=== PATIENT | male | born 1965 | race Caucasian/White ===

== ENCOUNTER 2016-11-18 09:46 | Emergency (ER) | payer OTHER ==
[2016-11-18 10:00] VITALS: BP 116/72
--- NOTE | 2016-11-18 10:26 | UC ---
Skin Complaint HPI - HPI Summary HPI Summary: hives all over x 4 days + macular rash , itchy, no new food or detergent , started on zyban 3 weeks ago - History of Current Complaint Chief Complaint: UCRash Time Seen by Provider: 11/18/16 10:17 Stated Complaint: SKIN COMPLAINT Hx Obtained From: Patient Onset/Duration: Gradual Onset, Lasting Days - 4, Still Present Timing: Constant Onset Severity: Moderate Current Severity: Moderate Location: Diffuse Character: Pruritus, Hives, Redness Aggravating: Nothing Alleviating: Nothing Associated Signs & Symptoms: Positive: Rash. Negative: Vomiting, Numbness, Thirst, Diaphoresis, Shivering, Fever, Chills, Tenderness, Red Streaks, Joint Swelling - Allergy/Home Medications Allergies/Adverse Reactions: Allergies Allergy/AdvReac Type Severity Reaction Status Date / Time No Known Allergies Allergy Verified 11/18/16 09:54 Home Medications: Home Medications Bupropion HCl (Smoking [place] [Zyban] 150 mg PO BID 11/18/16 [History Confirmed 11/18/16] Esomeprazole(NF) [NexIUM(NF)] 40 mg PO DAILY 11/18/16 [History Confirmed ] Hydrocortisone 1% CREAM* [Hytone Cream 1%*] 1 applic TOPICAL QID PRN 11/18/16 [ History Confirmed 11/18/16] Lisinopril TAB* [Prinivil TAB*] 10 mg PO DAILY 11/18/16 [History Confirmed 11/18] Witch Pinky (Hamamelis Virgini [Witch Pinky] 1 applic TOPICAL SEE INSTRUCTIONS PRN 11/18/16 [History Confirmed 11/18/16] diPHENhydraMINE PO* [Benadryl PO 25 MG TAB*] 50 mg PO Q6H PRN 11/18/16 [History Confirmed 11/18/16] Review of Systems Constitutional: Negative Skin: Rash Eyes: Negative ENT: Negative Respiratory: Negative Cardiovascular: Negative Gastrointestinal: Negative Genitourinary: Negative All Other Systems Reviewed And Are Negative: Yes PMH/Surg Hx/FS Hx/Imm Hx GI/ History: Gastroesophageal Reflux - Surgical History Surgical History: None - Family History Known Family History: Negative: Diabetes - Social History Alcohol Use: Occasionally Substance Use Type: None Smoking Status (MU): Heavy Every Day Tobacco Smoker Type: Cigarettes Amount Used/How Often: 1 1/2 PPD Length of Time of Smoking/Using Tobacco: Since Age 19 Have You Smoked in the Last Year: Yes Physical Exam Triage Information Reviewed: Yes Appearance: Well-Appearing, No Pain Distress, Well-Nourished Vital Signs: Initial Vital Signs Temp 98.8 F 11/18/16 09:50 Pulse 100 11/18/16 09:50 Resp 16 11/18/16 09:50 BP 116/72 11/18/16 09:50 Pulse Ox 99 11/18/16 09:50 Vital Signs Reviewed: Yes Eyes: Positive: Conjunctiva Clear ENT: Positive: Normal ENT inspection, Hearing grossly normal, Pharynx normal Neck: Positive: Supple, Nontender, No Lymphadenopathy Respiratory: Positive: Chest non-tender, Lungs clear, Normal breath sounds, No respiratory distress Cardiovascular: Positive: RRR, No Murmur, Pulses Normal Bowel Sounds: Positive: Present Musculoskeletal Exam: Normal Musculoskeletal: Positive: Strength Intact Skin: Positive: rashes - diffuse macular rash Course/Dx - Diagnoses Provider Diagnoses: hives Discharge - Discharge Plan Condition: Stable Disposition: HOME Prescriptions: Triamcinolone 0.1% CREAM(NF) [Kenalog Cream 0.1%(NF)] 1 applic TOPICAL BID #60 gm predniSONE TAB* [Deltasone TAB*] 40 mg PO DAILY #10 tab Patient Education Materials: Urticaria (ED) Referrals: Austin Avendaño MD [Primary Care Provider] - 7 Days
== END 2016-11-18 10:30 | disposition home or self-care (01) ==
LOC: UCCORT 09:46
DX: L50.9 Urticaria, unspecified (principal); K21.9 Gastro-esophageal reflux disease without esophagitis; F17.210 Nicotine dependence, cigarettes, uncomplicated
CPT/HCPCS: 99202; G0463